=== PATIENT | male | born 1980 | race African-American/Black ===

== ENCOUNTER 2019-07-15 19:36 | Emergency (ER) | payer BC, SELFPAY ==
[2019-07-15 19:38] VITALS: BP 146/77; PULSE 108; RESP 17; TEMP 36.7; O2SAT 97; BMI 30.2
--- NOTE | 2019-07-15 20:26 | ED.DEP ---
ED Disposition - Plan for ED Patient: Instructions: ED Abscess Incision And Drainage Prescriptions: Smz/Tmp Ds [Bactrim Ds] 1 tablet PO BID #14 tablet Cephalexin [Keflex] 500 mg PO Q6 #40 capsule Referrals: Александр Cuellar III, MD [STAFF PHYSICIAN] -
[2019-07-15] MEDS: Smz/Tmp Ds Tablet 1 TABLET PO (20:35)
[2019-07-15] MEDS: Cephalexin 250 MG Capsule 500 MG PO (20:35)
--- NOTE | 2019-07-15 20:38 | ED.VISSUMM ---
- ER Visit Summary Date of Service: 07/15/19 Chief Complaint: Left buttock abscess History of Present Illness: The patient is a 39 M presenting with abscess to left buttock. This has been ongoing for the past 4 days. Patient states it did drain some yesterday. He has had multiple abscesses in the past. Denies fever. Denies other complaints. Physical Examination: Vitals are stable. Patient is afebrile. Alert no acute distress. HEENT exam is unremarkable. Neck is supple. Lungs are clear and equal bilaterally. Heart is regular rate and rhythm. Abdomen is soft nontender nondistended. Left buttock 3 cm abscess with fluctuance, normal rectal exam Extremities are unremarkable. Skin is warm and dry. Remainder of exam is unremarkable. Emergency Department Course and Treatment: Area was anesthetized with lidocaine. Incised with 11 blade. Moderate amount of pus was drained. Probed to break up loculations. Irrigated with saline. Patient tolerated this well. Advised wound care instructions. He is given prescriptions for Bactrim and Keflex. Advised to follow-up with primary care physician. Advised return to ED for worsening complaints. Disposition: Discharge home Impression: Left buttock abscess, I&D This note was generated with [employer] dictation software. It may contain incorrect words, spelling, and punctuation that were not noted in review of the chart prior to signing ED Disposition - Plan for ED Patient: Instructions: ED Abscess Incision And Drainage Prescriptions: Smz/Tmp Ds [Bactrim Ds] 1 tab PO BID #14 tab Prescription Printed Cephalexin [Keflex] 500 mg PO Q6 #40 cap Prescription Printed Referrals: Александр Cuellar III, MD [STAFF PHYSICIAN] -
[2019-07-15 20:46] VITALS: RESP 15
== END 2019-07-15 20:47 | disposition home or self-care (01) ==
PROVIDERS: Emergency Provider Emergency Medicine
DX: L02.31 Cutaneous abscess of buttock (principal)
CPT/HCPCS: 10060; 99283

== ENCOUNTER 2022-03-05 13:19 | Emergency (ER) | payer BC, SELFPAY ==
[2022-03-05 13:20] VITALS: BP 152/56; PULSE 77; RESP 18; TEMP 36.8; O2SAT 98; BMI 30.3
--- NOTE | 2022-03-05 13:23 | EKG12_ITS ---
Test Reason : CP Blood Pressure : / mmHG Vent. Rate : 078 BPM Atrial Rate : 078 BPM P-R Int : 186 ms QRS Dur : 088 ms QT Int : 360 ms P-R-T Axes : 053 018 034 degrees QTc Int : 410 ms Normal sinus rhythm Possible Left atrial enlargement Borderline ECG Confirmed by KIA AGARWAL, AMBER ([id number]), editorial intern LOLY MCELROY ([id number]) on 03/09/2022 11:14:11 AM Referred By: ALISHA Confirmed By:AMBER ADAM MD
--- NOTE | 2022-03-05 13:30 | RAD_ITS ---
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 FINDINGS: Support devices: None. No focal consolidations, effusions, or sizable pneumothorax. Cardiomediastinal silhouette is within normal limits. No acute findings in the bones or soft tissues. RAD/Chest 1 View (Portable) IMPRESSION: No radiographic evidence of acute cardiopulmonary disease. Electronically Signed: Javed Woody, at 13:53 EST ,
[2022-03-05 13:41] LABS: Absolute Lymphocyte Count 2.28 X10^3/uL (0.83-4.51); Absolute Neutrophil Count 4.6 X10^3/uL (2.0-7.7); Basophil# 0.03 X10^3/uL; Basophil% 0.4 % (0-1); Eosinophil# 0.19 X10^3/uL; Eosinophils% 2.6 % (0-5); Hemoglobin 15.5 g/dL (13.0-16.5); Lymphocyte # 2.28 X10^3/ul (0.83-4.51); Lymphocyte % 30.9 % (19-41); Mean Corp Hgb Conc 33.7 g/dL (32-36); Mean Corpuscular Hgb 30.4 pg (27.0-32.0); Mean Corpuscular Volume 90.2 fL (80-94); Mean Platelet Vol. 10.2 fl (6.2-12.0); Monocyte% 4.1 % (0-10); NRBC Flagged by Analyzer 0 % (0-5); Neutrophil # 4.57 X10^3/uL (2.7-7.7); Neutrophil % 61.7 % (47-70); Platelet Count 175 K/mm3 (150-450); RBC Distribution Width CV 11.9 % (11.6-14.6); RBC Distribution Width SD 39.3 fl (35.1-43.9); White Blood Count 7.4 K/mm3 (4.4-11.0)
[2022-03-05 14:00] LABS: Anion Gap 5 (5-15); BUN 17 mg/dL (7-18); BUN/Creat Ratio 21.7 RATIO (10-20); Calcium,Total 9.2 mg/dL (8.5-10.1); Chloride 105 mmol/L (98-107); Creatinine, Serum 0.78 mg/dL (0.70-1.30); EST Glomerular Filtration Rate 116 mL/min (>60); Est Glom Filt Rate - Afr Amer 140 mL/min (>60); Estimated Creatinine Clearance 140.85 ml/min; Glucose 110 mg/dL (74-106); Potassium 3.9 mmol/L (3.5-5.1); Sodium Level 137 mmol/L (136-145); Troponin-I HS 4 pg/mL (3.0-78.0)
[2022-03-05 14:15] VITALS: BP 117/74; PULSE 67; RESP 22
--- NOTE | 2022-03-05 16:01 | EDS_ITS ---
HPI History of Present Illness Chief Complaint: Chest Pain Detail of Chief Complaint: Left-sided chest tightness and left scapular tightness Informant: patient Onset/Context/Timing Onset: Hours (Approximately 4 hours ago) Activity at onset: sudden Timing: Continuous Quality: Positive for Tightness (Twisting sensation) Location: Left Parasternal Current Severity: Mild Maximum Severity: Moderate Worsened By: Nothing Relieved By: Nothing Associated Symptoms: Positive for Dyspnea and Lightheadedness; Negative for Nausea, Vomiting, Diaphoresis, Cough, Fever, Acid Reflux or Palpitations Narrative Narrative: Patient is a 41-year-old male on no medication who presents with left-sided chest tightness squeezing sensation and left scapular tightness/squeezing sensation started proxy 4 hours ago. He was playing with the kids. There is no history of trauma. He may have has slight shortness of breath. He denies history of coronary disease or any risk factors. He denies history of VTE. He has no risk factors for VTE. He denies pleuritic pain. He denies fever, chills night sweats. Nuys ocular, visual auditory symptoms. Nuys rhinorrhea, congestion postnasal drainage. No sore throat. He denies reproducible chest pain. Denies history of hiatal hernia, GERD or reflux. He denies black or maroon-colored stool. He denies intolerance to greasy or fried foods. He denies leg pain, swelling discoloration. Prior Similar Symptoms: Yes (June 2021. Did not seek medical attention) Recent Illness/Hospitalization: No CVD Risk Factors: Negative for Hypertension, Diabetes, Hypercholesterolemia, Family History 1' </=55 or Smoking (Former) PE Risk Factors: Negative for Recent Travel/Surgery, Recent Immobilization, Prior DVT or PE, Cancer or OCP + Smoking + >/=35 TAD Risk Factors: Negative for Marfan's Syndrome, Hypertension or Family History PFSH PFSH Medical History no medical history no medical history Home Medications cephalexin 500 mg capsule 500 mg PO Q6 #40 caps 07/15/19 [Rx Last Taken Unknown] sulfamethoxazole 800 mg-trimethoprim 160 mg tablet 1 tab PO BID #14 tabs 07/15/19 [Rx Last Taken Unknown] Allergy/AdvReac Type Severity Reaction Status Date / Time No Known Allergies Allergy Verified 03/05/22 13:20 Family History no significant family his no significant family history Social History (Updated 03/05/22 @ 16:[address] Cesar Thornton MD) household members: family Smoking Status: Former smoker substance use type: does not use ROS ROS ED Constitutional Constitutional ED: Denies chills, fever(s), subjective, sweats or weight loss Eyes Eyes: Reports none ENT ENT ED: Denies ear pain, rhinorrhea or sore throat Cardiovascular Cardiovascular: Reports as per HPI; Denies orthopnea or paroxysmal nocturnal dyspnea Respiratory/Chest Respiratory/Chest: Reports dyspnea; Denies cough, dyspnea on exertion, orthopnea or paroxysmal nocturnal dyspnea Gastrointestinal Gastrointestinal: Denies abdominal pain, constipation, diarrhea, melena, nausea or vomiting Genitourinary Genitourinary ED: Denies dysuria, hematuria or urinary frequency Musculoskeletal Musculoskeletal: Reports back pain; Denies arthralgias, myalgias or neck pain Integumentary Denies abscess, Abrasions or rash Neurologic Neurologic: Denies headache(s), paresthesias or weakness Psychiatric Psychiatric: Denies anxiety or depression Endocrine Endocrinology: Denies cold intolerance or heat intolerance Hematologic/Lymphatic Hematologic/Lymphatic: Denies easy bleeding or easy bruising EXAM Physical Exam Const Vital Signs: 03/05/22 13:20 03/05/22 14:16 03/05/22 14:15 Temperature 98.2 F Temperature Source Temporal Pulse Rate 77 67 Respiratory Rate 18 22 H Respiratory Effort Normal Non-Labored Blood Pressure 152/56 H 117/74 Blood Pressure Mean 88 88 Pulse Ox 98 Oxygen Delivery Method Room Air Positive well nourished and well developed General Appearance ED: well developed and NAD; Negative for pallor HEENT Reports moist mucous membranes HEENT Narrative: Ears normal. Nares patent. Mucosa moist. Uvula midline. normocephalic and atraumatic Eyes PERRL and EOMs intact bilaterally General Eye ED: Negative for pale conjunctiva or scleral icterus Neck no lymphadenopathy, supple and no JVD Chest Wall inspection of chest normal and palpation of chest normal Resp normal respiratory effort and clear to auscultation bilaterally Cardio regular rate, regular rhythm, S1 normal heart sound, S2 normal heart sound and no murmurs Peripheral Pulses: pulses 2+ throughout GI normal to inspection, nondistended, normoactive bowel sounds, soft to palpation, non-tender, non-distended and no masses; Negative for hepatosplenomegaly Back/Spine no CVA tenderness Back/Spine Narrative: Inspection is normal. Extremity normal to inspection Extremity Narrative: There is no asymmetry, swelling, discoloration, leg vein distention, palpable cords or tenderness along the distribution of the deep venous system. Neuro oriented x3, CN's II-XII intact bilaterally and no sensory deficits noted Sensorium / Orientation: awake and alert Motor Exam: strength 5/5 throughout Psych mental status grossly normal Skin no rashes or lesions noted and no wounds General Skin Exam: Negative for jaundice or pallor Heart Score History: Slightly/Non-Suspicious ECG: Normal Age: </= 45 years Risk Factors: No Risk Factors Score: 0 MDM MDM MDM Narrative Medical decision making narrative: Patient with chest tightness. Differential would be noncardiac chest pain, cardiac chest pain, pulmonary cause. Since pain is not reproducible nurse initiated orders were placed. First troponin is normal at 4. Will obtain 2- hour troponin. Lab Data Attestation: I reviewed the patient's lab results. Lab results narrative: Delta troponin is 0 both are less than 7 therefore negative predictive value is 100% that this is not cardiac. Will discharge to home Labs: Laboratory Results - last 24 hr 03/05/22 03/05/22 03/05/22 13:30 13:30 16:20 WBC 7.4 RBC 5.10 Hgb 15.5 Hct 46.0 MCV 90.2 MCH 30.4 MCHC 33.7 RDW Std Deviation 39.3 RDW Coeff of Terence 11.9 Plt Count 175 MPV 10.2 Immature Gran % (Auto) 0.300 Neut % (Auto) 61.7 Lymph % (Auto) 30.9 [place] % (Auto) 4.1 Eos % (Auto) 2.6 Baso % (Auto) 0.4 Absolute Neuts (auto) 4.6 Absolute Lymphs (auto) 2.28 Nucleated RBC % 0 Sodium 137 Potassium 3.9 Chloride 105 Carbon Dioxide 27.0 Anion Gap 5 BUN 17 Creatinine 0.78 Estim Creat Clear Calc 140.85 Est GFR (MDRD) Af Amer 140 Est GFR (MDRD) Non-Af 116 BUN/Creatinine Ratio 21.7 H Glucose 110 H Calcium 9.2 Troponin I High Sens 4 4 Radiography Chest X-Ray - ED: 1 View and Read by ED Physician (There is no no abnormality noted. Cardiac silhouette size normal. Perihilar region is normal. Lung parenchyma is normal. Osseous structures are normal.) Diagnostic Testing: Clinical Impression(s) from Imaging Studies Chest X-Ray 03/05/22 13:30 IMPRESSION: No radiographic evidence of acute cardiopulmonary disease. Electronically Signed: Javed Woody, at 13:53 EST , EKG Initial EKG: Attestation: I personally reviewed and interpreted this EKG as follows: Interpretation: Sinus Rhythm (EKG is normal with a ventricular rate of 78. [place] interval 286 ms. QS duration 88 ms. QT duration 3 and 60 ms. [place] is normal. The EKG is unremarkable for any acute ischemic changes.) Discharge Plan Triage Chief Complaint: Chest Pain ED Provider: Cesar Thornton Dx/Rx/DC Orders Clinical Impression: Chest tightness, Transient hypertension Instructions: ED Chest Pain, Noncardiac Prescriptions: No Action sulfamethoxazole-trimethoprim 1 TABLET tablet 1 tab PO BID Qty: 14 0RF cephalexin 500 MG capsule 500 mg PO Q6 Qty: 40 0RF Primary Care Provider: Care Physician,No Primary Referrals: Malina Avendano DO [Med Staff - Property Disposal Officer] - 1-2 Weeks Care Physician,No Primary [Primary Care Provider] - Disposition Disposition: Home, Self Care
[2022-03-05 16:52] LABS: Troponin-I HS 4 pg/mL (3.0-78.0)
== END 2022-03-05 17:58 | disposition home or self-care (01) ==
PROVIDERS: Emergency Provider Emergency Medicine; Visit Provider Emergency Medicine
DX: R07.89 Other chest pain (principal); R06.00 Dyspnea, unspecified; I10 Essential (primary) hypertension; Z87.891 Personal history of nicotine dependence; R42 Dizziness and giddiness
CPT/HCPCS: 71045; 80048; 84484; 85025; 93005; 99284; A4216